=== PATIENT | female | born 1990 | race Caucasian/White ===

== ENCOUNTER 2019-12-23 23:05 | Emergency (ER) | payer OTHER ==
[2019-12-23 23:45] VITALS: BP 134/90; PULSE 117; TEMP 98; BMI 31.2
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
== END 2019-12-24 01:38 | disposition home or self-care (01) ==
LOC: JER 23:05
DX: S50.812A Abrasion of left forearm, initial encounter (principal)
CPT/HCPCS: 99285-25